=== PATIENT | male | born 1945 | race Caucasian/White ===

== ENCOUNTER 2022-07-18 12:36 | Observation (INO) | payer OTHER ==
[~2022-07-18 12:36] MED LIST: Acetaminophen/Codeine 30-300mg Tablet ONE; Amlodipine 5 MG TAB ONE; Aspirin Chewable 81 MG TAB ONE; Iopamidol-370 76% 500 ML 1 ML ONE; Ondansetron PF 4 MG/2 ML Vial ONE; Simvastatin 10 MG TAB ONE; cloNIDine 0.1 MG TAB ONE
[2022-07-18 12:54] VITALS: BMI 25.9
[2022-07-18] MEDS ORDERED: Dextrose 50% Abboject 50 ML SYRINGE SLOW IVP PRN (14:30)
[2022-07-18] MEDS ORDERED: Dextrose 5% in Water 1,000 ML IV PRN (14:30)
[2022-07-18] MEDS ORDERED: Ondansetron ODT 4 MG TAB PO PRN (14:31)
[2022-07-18] MEDS ORDERED: HumaLOG 300 UNITS/3 ML VIAL SC PRN ×2 (14:31)
[2022-07-18] MEDS ORDERED: Polyethylene Glycol 3350 17 GM Packet PO SCH (15:30)
[2022-07-18] MEDS ORDERED: Calcium Carbonate 500 MG ChewTAB PO PRN (18:12)
[2022-07-18] MEDS: Acetaminophen/Codeine 30-300mg Tablet PO PRN (18:25)
[2022-07-18] MEDS ORDERED: Atorvastatin Calcium 20 MG TAB PO SCH (21:00)
[2022-07-18] MEDS: cloNIDine 0.1 MG TAB PO SCH (21:06)
[2022-07-19] MEDS: Acetaminophen/Codeine 30-300mg Tablet PO PRN (00:24)
[2022-07-19] MEDS: cloNIDine 0.1 MG TAB PO SCH (08:23)
[2022-07-19] MEDS ORDERED: Regadenoson 0.4 MG/5 ML SYRINGE ONE (08:40)
[2022-07-19] MEDS ORDERED: Amlodipine 10 MG TAB PO SCH (09:00)
[2022-07-19] MEDS ORDERED: Aspirin Chewable 81 MG TAB PO SCH (09:00)
[2022-07-19] MEDS ORDERED: Glimepiride 1 MG TAB PO SCH (09:00)
[2022-07-19] MEDS ORDERED: Polyethylene Glycol 3350 17 GM Packet PO SCH (09:00)
[2022-07-19] MEDS ORDERED: Enoxaparin Sodium 40 MG/0.4 ML SYRINGE SC SCH (09:00)
[2022-07-19 12:06] VITALS: BP 159/82; TEMP 98.4
[2022-07-19] MEDS ORDERED: Atorvastatin Calcium 20 MG TAB PO SCH (21:00)
== END 2022-07-19 16:03 | disposition home or self-care (01) ==
LOC: T4-A 12:49
PROVIDERS: ADMIT Family Medicine; ATTEND Family Medicine
DX: R07.89 Other chest pain (principal); R91.8 Other nonspecific abnormal finding of lung field; N28.1 Cyst of kidney, acquired; I10 Essential (primary) hypertension; E78.5 Hyperlipidemia, unspecified; E11.51 Type 2 diabetes mellitus with diabetic peripheral angiopathy without gangrene; Z87.891 Personal history of nicotine dependence; Z79.82 Long term (current) use of aspirin; Z79.84 Long term (current) use of oral hypoglycemic drugs; Z79.899 Other long term (current) drug therapy
CPT/HCPCS: 74178; 78452; 82962 ×2; 93017; 94760 ×2; A9500; 36416; 96372; G0378; J1650; J2405; J2785; Q9967

== ENCOUNTER 2022-08-17 08:36 | Outpatient (CLI) | payer OTHER ==
[2022-08-17 11:40] LABS: Anion Gap 15 mmol/L (10-20); BUN (Urea Nitrogen) 15 mg/dL (8.4-25.7); Calc. Creatinine Clearance 0 mL/min (70-130); Calcium 8.8 mg/dL (7.8-10.44); Carbon Dioxide 26 mmol/L (23-31); Chloride 101 mmol/L (98-107); Estimated GFR 51; Glucose 178 mg/dL (83-110); Sodium 138 mmol/L (136-145)
[2022-08-17 11:45] LABS: Hemoglobin 9.2 g/dL (13.5-17.5); Mean Corpuscular HGB CONC 30.5 g/dL (32.0-36.0); Mean Corpuscular Hemoglobin 25.2 pg (27.0-33.0); Mean Corpuscular Volume 82.7 fl (81.2-95.1); Mean Platelet Volume 9.1 fl (7.4-10.4); Platelet Count 407 10x3/uL (150-450); RBC Distribution Width 15.4 % (11.5-14.5); Red Blood Cell (RBC) Count 3.65 10x6/uL (4.32-5.72); White Blood Cell (WBC) Count 12.5 10x3/uL (3.5-10.5)
== END 2022-08-17 08:37 | disposition home or self-care (01) ==
LOC: LABBT 08:36
PROVIDERS: ATTEND Thoracic Surgery (Cardiothoracic Vascular Surgery)
DX: Z01.818 Encounter for other preprocedural examination (principal)
CPT/HCPCS: 80048; 85027; 93005; 93010

== ENCOUNTER 2022-08-21 05:44 | Day surgery (SDC) | payer OTHER ==
[2022-08-20 14:22] VITALS: BMI 24.3
[2022-08-21] MEDS ORDERED: fentaNYL Citrate/PF 100 MCG/2 ML SYRINGE ONE (06:40)
[2022-08-21] MEDS ORDERED: SUGAMMADEX SODIUM 200 MG/2 ML VIAL ONE (07:07)
[2022-08-21] MEDS ORDERED: Lidocaine 4% Topical Sol 50 ML BOT ONE (07:08)
[2022-08-21] MEDS ORDERED: CEFAZOLIN 2 GM VIAL ONE (07:15)
[2022-08-21] MEDS ORDERED: Sodium Chloride 0.9% 100 ML ONE (07:15)
[2022-08-21] MEDS ORDERED: Rocuronium Bromide 10 MG/ML (10ML VIAL) ONE (07:29)
[2022-08-21] MEDS ORDERED: Dexamethasone 20 MG/5 ML VIAL ONE (07:29)
[2022-08-21] MEDS ORDERED: Glycopyrrolate 0.2 MG/ML 5 ML SYRINGE ONE (07:29)
[2022-08-21] MEDS ORDERED: PROPOFOL 200 MG/20 ML VIAL ONE (07:29)
[2022-08-21] MEDS ORDERED: NEOSTIGMINE 3 MG/3 ML SYR 3 MG/3 ML SYRINGE ONE (07:29)
[2022-08-21] MEDS ORDERED: Ondansetron PF 4 MG/2 ML Vial ONE (07:29)
[2022-08-21] MEDS ORDERED: Bupivacaine PF 0.5% 30 ML VIAL ONE (07:51)
[2022-08-21] MEDS ORDERED: HYDROcodone/Acetaminophen 5/325 mg Tablet PO PRN (08:17)
== END 2022-08-21 10:15 | disposition home or self-care (01) ==
LOC: SDC 05:44
PROVIDERS: ATTEND Thoracic Surgery (Cardiothoracic Vascular Surgery)
PROC: 07B74ZX Excision of Thorax Lymphatic, Percutaneous Endoscopic Approach, Diagnostic (ICD-10-PCS; principal; 2022-08-21)
DX: C34.11 Malignant neoplasm of upper lobe, right bronchus or lung (principal); C77.1 Secondary and unspecified malignant neoplasm of intrathoracic lymph nodes; I12.9 Hypertensive chronic kidney disease with stage 1 through stage 4 chronic kidney disease, or unspecified chronic kidney disease; E11.22 Type 2 diabetes mellitus with diabetic chronic kidney disease; N18.9 Chronic kidney disease, unspecified; E78.5 Hyperlipidemia, unspecified; K21.9 Gastro-esophageal reflux disease without esophagitis; E11.51 Type 2 diabetes mellitus with diabetic peripheral angiopathy without gangrene; Z79.82 Long term (current) use of aspirin; Z79.84 Long term (current) use of oral hypoglycemic drugs; Z79.899 Other long term (current) drug therapy; Z95.820 Peripheral vascular angioplasty status with implants and grafts
CPT/HCPCS: 39402; C1776; 88305; 88341; 88342; J1100; J2405; J2704; J3490; S0020

== ENCOUNTER → 2022-09-06 | Outpatient (CLI) | payer OTHER | LOC: PET 09:30 | PROVIDERS: ATTEND Internal Medicine Hematology & Oncology | DX: C34.11 Malignant neoplasm of upper lobe, right bronchus or lung (principal); R93.7 Abnormal findings on diagnostic imaging of other parts of musculoskeletal system | CPT/HCPCS: 78815; A9552 ==

== ENCOUNTER 2022-11-13 12:30 | Outpatient (CLI) | payer OTHER | END 2022-11-13 12:31 | disposition home or self-care (01) | LOC: PET 12:30 | PROVIDERS: ATTEND Internal Medicine | DX: C34.11 Malignant neoplasm of upper lobe, right bronchus or lung (principal) | CPT/HCPCS: 78815; A9552 ==

== ENCOUNTER 2022-12-25 08:45 | Outpatient (CLI) | payer OTHER | END 2022-12-25 08:46 | disposition home or self-care (01) | LOC: PET 08:45 | PROVIDERS: ATTEND Internal Medicine Hematology & Oncology | DX: C34.90 Malignant neoplasm of unspecified part of unspecified bronchus or lung (principal); C79.51 Secondary malignant neoplasm of bone | CPT/HCPCS: 78815; A9552 ==

== ENCOUNTER 2023-02-21 09:38 | Outpatient (CLI) | payer OTHER | END 2023-02-21 09:39 | disposition home or self-care (01) | LOC: TBSIIMAG 09:38 | PROVIDERS: ATTEND Radiology Radiation Oncology | DX: C79.31 Secondary malignant neoplasm of brain (principal); C34.90 Malignant neoplasm of unspecified part of unspecified bronchus or lung; Z92.3 Personal history of irradiation; G31.9 Degenerative disease of nervous system, unspecified; I67.82 Cerebral ischemia; J32.3 Chronic sphenoidal sinusitis | CPT/HCPCS: 70553; 80053; 84439; 84443; 85025 ==

== ENCOUNTER 2023-03-12 12:13 | Outpatient (CLI) | payer OTHER ==
[~2023-03-12 12:13] MED LIST changes: -Acetaminophen/Codeine 30-300mg Tablet ONE; -Amlodipine 5 MG TAB ONE; -Aspirin Chewable 81 MG TAB ONE; +Iopamidol 370 76% 100 ML VIAL ONE; -Iopamidol-370 76% 500 ML 1 ML ONE; -Ondansetron PF 4 MG/2 ML Vial ONE; -Simvastatin 10 MG TAB ONE; -cloNIDine 0.1 MG TAB ONE
== END 2023-03-12 12:14 | disposition home or self-care (01) ==
LOC: CT 12:13
PROVIDERS: ATTEND Internal Medicine
DX: C34.11 Malignant neoplasm of upper lobe, right bronchus or lung (principal)
CPT/HCPCS: 71260; 82565; Q9967

== ENCOUNTER 2023-04-18 11:19 | Outpatient (CLI) | payer OTHER | END 2023-04-18 11:20 | disposition home or self-care (01) | LOC: SCSMRI 11:19 | PROVIDERS: ATTEND Internal Medicine | DX: C34.90 Malignant neoplasm of unspecified part of unspecified bronchus or lung (principal); R29.898 Other symptoms and signs involving the musculoskeletal system; M47.816 Spondylosis without myelopathy or radiculopathy, lumbar region; N28.9 Disorder of kidney and ureter, unspecified; M89.9 Disorder of bone, unspecified; M51.36 Other intervertebral disc degeneration, lumbar region; M51.37 Other intervertebral disc degeneration, lumbosacral region; M89.38 Hypertrophy of bone, other site | CPT/HCPCS: 72158 ==

== ENCOUNTER → 2023-05-07 | Day surgery (SDC) | payer OTHER ==
[~2023-05-07] MED LIST changes: -Iopamidol 370 76% 100 ML VIAL ONE; +Midazolam HCl 2 mg/2 ml Vial ONE; +Sodium Bicarbonate 2.5 MEQ/5 ML VIAL ONE; +fentaNYL 50 mcg/mL 1 mL Vial ONE
[2023-05-07 07:48] LABS: #Eosinphils 0.1 thou/uL (0.0-0.7); #Monocytes 0.9 thou/uL (0.11-0.59); #Neutrophils 9.2 thou/uL (1.40-6.50); %Basophils 0.2 % (0.0-1.0); %Eosinophils 0.9 % (0.0-10.0); %Lymphocytes 10.1 % (21.0-51.0); %Monocytes 7.5 % (0.0-10.0); Hemoglobin 10.4 g/dL (14.0-18.0); Mean Corpuscular HGB CONC 30.8 g/dL (32.0-36.0); Mean Corpuscular Volume 90.9 fl (78.0-98.0); Mean Platelet Volume 8.6 fL (7.4-10.4); Platelet Count 322 10x3/uL (130-400); RBC Distribution Width 15.9 % (11.5-14.5); Red Blood Cell (RBC) Count 3.72 mill/uL (4.70-6.10); White Blood Cell (WBC) Count 11.4 10x3/uL (4.8-10.8)
[2023-05-07 08:01] LABS: INR-International Normal Ratio 1.3; PTT 41.3 sec (22.9-36.1); Prothrombin Time 16.3 sec (12.0-14.7)
== END ==
LOC: SPEC 06:56
PROVIDERS: ATTEND Urology
DX: R33.9 Retention of urine, unspecified (principal); R06.00 Dyspnea, unspecified; N47.2 Paraphimosis; E78.5 Hyperlipidemia, unspecified; C34.11 Malignant neoplasm of upper lobe, right bronchus or lung; E11.22 Type 2 diabetes mellitus with diabetic chronic kidney disease; E11.59 Type 2 diabetes mellitus with other circulatory complications; I13.10 Hypertensive heart and chronic kidney disease without heart failure, with stage 1 through stage 4 chronic kidney disease, or unspecified chronic kidney disease; N18.2 Chronic kidney disease, stage 2 (mild); K21.9 Gastro-esophageal reflux disease without esophagitis; I73.9 Peripheral vascular disease, unspecified; Z87.891 Personal history of nicotine dependence; Z95.5 Presence of coronary angioplasty implant and graft; Z79.899 Other long term (current) drug therapy; Z79.4 Long term (current) use of insulin
CPT/HCPCS: 51102; 77002; 85025; 85610; 85730; C2627; J1956; J2250; J3010

== ENCOUNTER 2023-05-09 08:41 | Outpatient (CLI) | payer OTHER | END 2023-05-09 08:42 | disposition home or self-care (01) | LOC: RAD 08:41 | PROVIDERS: ATTEND Internal Medicine Critical Care Medicine | DX: R06.00 Dyspnea, unspecified (principal); J90 Pleural effusion, not elsewhere classified; J98.4 Other disorders of lung | CPT/HCPCS: 71046 ==

== ENCOUNTER 2023-07-02 11:23 | Outpatient (CLI) | payer OTHER ==
[~2023-07-02 11:23] MED LIST changes: +Magnevist 469MG/ML 20 ML VIAL ONE; -Midazolam HCl 2 mg/2 ml Vial ONE; -Sodium Bicarbonate 2.5 MEQ/5 ML VIAL ONE; -fentaNYL 50 mcg/mL 1 mL Vial ONE
== END 2023-07-02 11:24 | disposition home or self-care (01) ==
LOC: PET 11:23
PROVIDERS: ATTEND Internal Medicine
DX: C34.11 Malignant neoplasm of upper lobe, right bronchus or lung (principal); C71.9 Malignant neoplasm of brain, unspecified; R93.5 Abnormal findings on diagnostic imaging of other abdominal regions, including retroperitoneum; R90.82 White matter disease, unspecified
CPT/HCPCS: 70553; 78815; A9552; A9579

== ENCOUNTER 2023-07-16 08:42 | Outpatient (CLI) | payer OTHER | END 2023-07-16 08:43 | disposition home or self-care (01) | LOC: RAD 08:42 | PROVIDERS: ATTEND Internal Medicine Critical Care Medicine | DX: R06.00 Dyspnea, unspecified (principal); J90 Pleural effusion, not elsewhere classified; J98.4 Other disorders of lung | CPT/HCPCS: 71046 ==

== ENCOUNTER 2023-09-03 11:40 | Outpatient (CLI) | payer OTHER | END 2023-09-03 11:41 | disposition home or self-care (01) | LOC: SCSMRI 11:40 | PROVIDERS: ATTEND Internal Medicine | DX: C34.11 Malignant neoplasm of upper lobe, right bronchus or lung (principal); C79.31 Secondary malignant neoplasm of brain | CPT/HCPCS: 70553 ==

== ENCOUNTER 2023-11-18 11:19 | Day surgery (SDC) | payer OTHER ==
[2023-11-18] MEDS ORDERED: diphenhydrAMINE 25 MG CAP PO SCH (12:15)
[2023-11-18] MEDS ORDERED: Acetaminophen 500 MG TAB PO SCH (12:15)
[2023-11-18] MEDS ORDERED: Acetaminophen 500 MG TAB ONE (12:35)
[2023-11-18] MEDS ORDERED: diphenhydrAMINE 25 MG CAP ONE (12:36)
[2023-11-18 15:26] VITALS: BP 142/67; TEMP 97.6
== END 2023-11-18 15:42 | disposition home or self-care (01) ==
LOC: ONC/OP 11:19
PROVIDERS: ATTEND Internal Medicine
DX: D64.9 Anemia, unspecified (principal); D69.6 Thrombocytopenia, unspecified
CPT/HCPCS: 36430; 86850; 86900; 86901; 86920; P9016; 80053; 81001; 87077; 87086; J1642

== ENCOUNTER 2024-03-25 15:00 | Inpatient (IN) | payer OTHER ==
[2024-03-25 15:59] LABS: #Basophils Less than 0.03 10x3/uL (0.0-0.2); %Basophils 0.4 % (0.0-1.0); %Eosinophils 1.4 % (0.0-10.0); %Lymphocytes 11.1 % (21.0-51.0); %Monocytes 6.5 % (0.0-10.0); %Neutrophils 80.2 % (42.0-75.0); Hematocrit 40.9 % (42.0-52.0); Hemoglobin 12.9 g/dL (14.0-18.0); Mean Corpuscular HGB CONC 31.5 g/dL (32.0-36.0); Mean Corpuscular Hemoglobin 29.5 pg (27.0-31.0); Mean Corpuscular Volume 93.6 fL (78.0-98.0); Mean Platelet Volume 9.5 fL (7.4-10.4); Platelet Count 180 10x3/uL (130-400); RBC Distribution Width 17.2 % (11.5-14.5); Red Blood Cell (RBC) Count 4.37 mill/uL (4.70-6.10)
[2024-03-25 16:07] LABS: Bacteria/HPF 2+ HPF (None Seen); Bilirubin Negative (Negative); Blood, Urine Trace (Negative); CAUTI Indications for Culture Pelvic or flank pain; Clarity Turbid (Clear); Glucose, Urine (Dipstick) 50 mg/dL (Negative); Ketone, Urine Negative (Negative); Leukocyte 500 Leu/uL (Negative); Nitrite Negative (Negative); Protein, Urine (Dipstick) 30 mg/dL (Neg-Trace); Specific Gravity, Urine 1.007 (1.002-1.036); Squamous Epithelial None Seen HPF (0-3); Urobilinogen Normal mg/dL (Less than 2); WBC/HPF 21-50 HPF (0-3)
[2024-03-25 16:09] LABS: Urine Culture Reflex Yes Yes
[2024-03-25 16:15] LABS: ALT (SGPT) 9 U/L (8-55); AST (SGOT) 20 U/L (5-34); Alkaline Phosphatase 188 U/L (40-110); Anion Gap 15 mmol/L (10-20); BUN (Urea Nitrogen) 18 mg/dL (8.4-25.7); Bilirubin, Total 0.5 mg/dL (0.2-1.2); CK (CPK) 38 U/L (30-200); Calc. Creatinine Clearance 0 mL/min (70-130); Calcium 8.8 mg/dL (7.8-10.44); Carbon Dioxide 23 mmol/L (23-31); Chloride 105 mmol/L (98-107); Estimated GFR 38; Glucose 147 mg/dL (83-110); Lipase 6 U/L (8-78); Potassium 2.9 mmol/L (3.5-5.1); Sodium 140 mmol/L (136-145)
[2024-03-25 16:19] LABS: Troponin I Less than 0.010 ng/mL (< 0.028)
[2024-03-25] MEDS ORDERED: Potassium Chloride 20 MEQ TAB ONE (16:52)
[2024-03-25] MEDS ORDERED: cefTRIAXone (ROCEPHIN) 2 GM VIAL ONE (16:52)
[2024-03-25] MEDS ORDERED: Sodium Chloride 0.9% 100 ML ONE (16:52)
[2024-03-25] MEDS ORDERED: Ondansetron PF 4 MG/2 ML Vial IVP PRN (17:26)
[2024-03-25] MEDS ORDERED: Acetaminophen 650 MG Suppository PR PRN (17:26)
[2024-03-25] MEDS ORDERED: Acetaminophen 325 MG TAB PO PRN (17:26)
[2024-03-25] MEDS ORDERED: Ondansetron ODT 4 MG TAB PO PRN (17:26)
[2024-03-25 18:21] LABS: #Basophils Less than 0.03 10x3/uL (0.0-0.2); %Basophils 0.3 % (0.0-1.0); %Eosinophils 1.3 % (0.0-10.0); %Lymphocytes 15.3 % (21.0-51.0); %Monocytes 7.4 % (0.0-10.0); %Neutrophils 75.4 % (42.0-75.0); Hematocrit 40.6 % (42.0-52.0); Hemoglobin 12.7 g/dL (14.0-18.0); Mean Corpuscular HGB CONC 31.3 g/dL (32.0-36.0); Mean Corpuscular Hemoglobin 30.2 pg (27.0-31.0); Mean Corpuscular Volume 96.7 fL (78.0-98.0); Mean Platelet Volume 9.3 fL (7.4-10.4); Platelet Count 184 10x3/uL (130-400); RBC Distribution Width 17.2 % (11.5-14.5)
[2024-03-25 18:35] LABS: Hemoglobin A1c 4.9 % (4.0-6.0)
[2024-03-25 18:40] LABS: MONO NEGATIVE CONTROL ZONE White (Negative) (White); MONO POSITIVE CONTROL Pink Line (Positive) (PINK/RED); Mononucleosis NEGATIVE (NEGATIVE)
[2024-03-25 18:48] LABS: Magnesium 2.2 mg/dL (1.6-2.6)
[2024-03-25 19:07] LABS: HIV (1/2) Antibody/Antigen NONREACTIVE (NonReactive); HIV 1/2 INDEX 0.06 S/CO (<1.00); Thyroid Stimulating Hormone 1.9888 uIU/mL (0.35-4.94)
[2024-03-25] MEDS: Vancomycin (BATCH) 1.75 GM in Premix 1 BAG IVPB SCH (20:01)
[2024-03-25] MEDS: Apixaban 5 MG TAB PO SCH (20:20)
[2024-03-25] MEDS: Pantoprazole DR 40 MG TAB PO SCH (20:20)
[2024-03-25] MEDS: Tamsulosin HCl 0.4 MG CAP PO SCH (20:20)
[2024-03-25] MEDS ORDERED: Famotidine 20 MG TAB PO SCH (21:00)
[2024-03-25 21:32] VITALS: BMI 21.8
[2024-03-25] MEDS: LevoFLOXacin 750 mg/D5W 750 MG in Premix 1 BAG IVPB SCH (22:19)
[2024-03-25] MEDS: Atorvastatin Calcium 10 MG TAB PO SCH (22:19)
[2024-03-26 06:14] LABS: Anion Gap 12 mmol/L (10-20); BUN (Urea Nitrogen) 14 mg/dL (8.4-25.7); Calc. Creatinine Clearance 36 mL/min (70-130); Calcium 8.1 mg/dL (7.8-10.44); Carbon Dioxide 22 mmol/L (23-31); Chloride 110 mmol/L (98-107); Estimated GFR 42; Glucose 46 mg/dL (83-110); Potassium 3.6 mmol/L (3.5-5.1); Sodium 140 mmol/L (136-145)
[2024-03-26] MEDS ORDERED: Albuterol 2.5 MG (3 mL) NEB NEB PRN (08:50)
[2024-03-26] MEDS ORDERED: Potassium Chloride 10 MEQ TAB PO PRN (08:51)
[2024-03-26] MEDS: Folic Acid/Vit B Comp W-C PO SCH (09:57)
[2024-03-26] MEDS: cloNIDine 0.1 MG TAB PO SCH (09:57)
[2024-03-26] MEDS: Pantoprazole DR 40 MG TAB PO SCH (09:57)
[2024-03-26] MEDS ORDERED: cefTRIAXone\\ROCEPHIN 1 GM in Sodium Chloride 0.9% 100 ML IVPB SCH (17:00)
[2024-03-26] MEDS: dilTIAZem CD 240 MG CAP PO SCH (20:19)
[2024-03-26] MEDS: Aspirin Chewable 81 MG TAB PO SCH (20:20)
[2024-03-26] MEDS: Gabapentin 300 MG CAP PO SCH (20:20)
[2024-03-26] MEDS: Rosuvastatin 20 MG TAB PO SCH (20:20)
[2024-03-26] MEDS: Labetalol HCl 100 MG/20 ML VIAL SLOW IVP SCH (23:11)
[2024-03-27 05:24] VITALS: TEMP 97.9
[2024-03-27 09:15] VITALS: BP 172/80
[2024-03-27 09:34] LABS: Hematocrit 36.3 % (42.0-52.0); Hemoglobin 11.3 g/dL (14.0-18.0); Mean Corpuscular HGB CONC 31.1 g/dL (32.0-36.0); Mean Corpuscular Hemoglobin 30.1 pg (27.0-31.0); Mean Corpuscular Volume 96.8 fL (78.0-98.0); Mean Platelet Volume 9.6 fL (7.4-10.4); Platelet Count 176 10x3/uL (130-400); RBC Distribution Width 17.2 % (11.5-14.5); Red Blood Cell (RBC) Count 3.75 mill/uL (4.70-6.10)
== END 2024-03-27 17:03 | disposition left against medical advice (07) | DRG 698 ==
LOC: ERS 15:00 → MSONC 17:31
PROVIDERS: ADMIT Internal Medicine; ATTEND Emergency Medicine
DX: T83.510A Infection and inflammatory reaction due to cystostomy catheter, initial encounter (principal); G93.41 Metabolic encephalopathy; C34.90 Malignant neoplasm of unspecified part of unspecified bronchus or lung; N39.0 Urinary tract infection, site not specified; I12.9 Hypertensive chronic kidney disease with stage 1 through stage 4 chronic kidney disease, or unspecified chronic kidney disease; E11.22 Type 2 diabetes mellitus with diabetic chronic kidney disease; B96.4 Proteus (mirabilis) (morganii) as the cause of diseases classified elsewhere; E11.649 Type 2 diabetes mellitus with hypoglycemia without coma; R33.9 Retention of urine, unspecified; N18.32 Chronic kidney disease, stage 3b; E87.6 Hypokalemia; I48.0 Paroxysmal atrial fibrillation; Z87.891 Personal history of nicotine dependence; Z79.84 Long term (current) use of oral hypoglycemic drugs; R30.0 Dysuria; D51.8 Other vitamin B12 deficiency anemias
CPT/HCPCS: 36415; 36416; 71045; 80048; 80053; 81001; 82274; 82550; 83036; 83605; 83690; 83735; 83880; 84443; 84484; 85025; 85027; 86308; 87040; 87077; 87086; 87186; 87389; 93005; 96374; 96375; J0696; J1956; J3370; J3490

== ENCOUNTER 2024-09-10 10:15 | Outpatient (CLI) | payer OTHER | END 2024-09-10 10:16 | disposition home or self-care (01) | LOC: PET 10:15 | PROVIDERS: ATTEND Internal Medicine | DX: C34.90 Malignant neoplasm of unspecified part of unspecified bronchus or lung (principal); C77.9 Secondary and unspecified malignant neoplasm of lymph node, unspecified; D51.8 Other vitamin B12 deficiency anemias; R30.0 Dysuria; R91.8 Other nonspecific abnormal finding of lung field; J90 Pleural effusion, not elsewhere classified | CPT/HCPCS: 78815; A9552 ==

== ENCOUNTER 2024-09-17 08:47 | Outpatient (CLI) | payer OTHER | END 2024-09-17 08:48 | disposition home or self-care (01) | LOC: ULT 08:47 | PROVIDERS: ATTEND Internal Medicine | DX: M79.621 Pain in right upper arm (principal); C34.90 Malignant neoplasm of unspecified part of unspecified bronchus or lung; D51.8 Other vitamin B12 deficiency anemias; R30.0 Dysuria ==

== ENCOUNTER 2024-09-21 08:30 | Day surgery (SDC) | payer OTHER ==
[2024-09-21 08:42] LABS: #Basophils Less than 0.03 10x3/uL (0.0-0.2); %Basophils 0.1 % (0.0-1.0); %Eosinophils 0.9 % (0.0-10.0); %Lymphocytes 6.6 % (21.0-51.0); %Monocytes 8.2 % (0.0-10.0); %Neutrophils 83.6 % (42.0-75.0); Hematocrit 37.8 % (42.0-52.0); Hemoglobin 11.7 g/dL (14.0-18.0); Mean Corpuscular Hemoglobin 29.1 pg (27.0-31.0); Mean Platelet Volume 8.8 fL (7.4-10.4); Platelet Count 262 10x3/uL (130-400); RBC Distribution Width 18.4 % (11.5-14.5); Red Blood Cell (RBC) Count 4.02 mill/uL (4.70-6.10)
[2024-09-21 09:14] LABS: INR-International Normal Ratio 1.1; Prothrombin Time 14.5 sec (12.0-14.7)
[2024-09-21 09:15] LABS: PTT 35.1 sec (22.9-36.1)
[2024-09-21] MEDS ORDERED: fentaNYL 50 mcg/mL 1 mL Vial ONE (10:15)
[2024-09-21] MEDS ORDERED: Midazolam HCl 2 mg/2 ml Vial ONE (10:15)
[2024-09-21] MEDS ORDERED: Lidocaine 1% w/Epinephrine 1:100K 20 ML VIAL ONE (10:16)
[2024-09-21] MEDS ORDERED: Sodium Bicarbonate 2.5 MEQ/5 ML SDV ONE (10:16)
[2024-09-21] MEDS ORDERED: HYDROcodone/Acetaminophen 10/325 mg Tablet ONE (13:01)
[2024-09-21] MEDS ORDERED: Morphine ER 30 MG TAB PO SCH (13:15)
[2024-09-21] MEDS ORDERED: cloNIDine 0.1 MG TAB ONE (14:31)
[2024-09-21] MEDS ORDERED: cloNIDine 0.1 MG TAB PO SCH (14:45)
== END 2024-09-21 15:46 | disposition home or self-care (01) ==
LOC: CT 08:30
PROVIDERS: ATTEND Internal Medicine
PROC: 0BBK3ZX Excision of Right Lung, Percutaneous Approach, Diagnostic (ICD-10-PCS; principal; 2024-09-21)
DX: C34.91 Malignant neoplasm of unspecified part of right bronchus or lung (principal); C79.31 Secondary malignant neoplasm of brain; D51.8 Other vitamin B12 deficiency anemias; R30.0 Dysuria; R31.9 Hematuria, unspecified; J18.9 Pneumonia, unspecified organism; R33.9 Retention of urine, unspecified; I73.9 Peripheral vascular disease, unspecified; I12.9 Hypertensive chronic kidney disease with stage 1 through stage 4 chronic kidney disease, or unspecified chronic kidney disease; N18.9 Chronic kidney disease, unspecified; E11.22 Type 2 diabetes mellitus with diabetic chronic kidney disease; E78.2 Mixed hyperlipidemia; K64.0 First degree hemorrhoids; K21.00 Gastro-esophageal reflux disease with esophagitis, without bleeding; Z79.899 Other long term (current) drug therapy; Z98.890 Other specified postprocedural states
CPT/HCPCS: 32408; 71045; 77012; 85025; 85610; 85730; 88305; 88333; 88334; 88341; 88342; 99152; 99153; J1642; J2250; J3010